=== PATIENT | female | born 1960 | race Caucasian/White ===

== ENCOUNTER → 2018-05-29 07:32 | Outpatient (CLI) | payer MEDICARE, MEDICAID ==
[2015-05-23 12:27] VITALS: BMI 50.7
[~2018-05-29 07:32] MED LIST: CALCIUM 600 +1 EAC3 PO; CHILDREN'S ASPI81 MG PO; DEXILANT60 MG PO; LEVAQUIN750 MG PO; LISINOPRIL5 MG PO; MEDROL DOSE PACK4 MG PO; PRAVACHOL40 MG PO; PROAIR HFA8.5 GM INH; ROBITUSSIN AC (10 M1 PO; VITAMIN B-121000 MCG PO; ZANAFLEX6 MG PO
== END | disposition home or self-care (01) ==
LOC: D.RT 07:32
PROVIDERS: ATTEND Nurse Practitioner
DX: R05 Cough (principal)